=== PATIENT | male | born 1985 | race Caucasian/White ===

== ENCOUNTER 2025-05-07 00:41 | Inpatient (IN) | payer OTHER ==
[~2025-05-07] VITALS: Ht 177.8 cm; Wt 92.4 kg
[2025-05-07] VITALS (11 sets, daily range): BP systolic 112–145; BP diastolic 77–88; PULSE 62–82; RESP 16–24; TEMP 97.6–98.7; O2SAT 94–98
[2025-05-07 00:54] LABS: Hematocrit 40.1 % (41.0-53.0); Hemoglobin 13.1 g/dL (13.5-17.5); Mean Corpuscular Hemoglobin 27.2 pg (28.0-32.0); Mean Corpuscular Volume 83.1 fL (80.0-100.0); Nucleated Red Blood Cells % 0.0 %
--- NOTE | 2025-05-07 00:59 | ED.PDOC ---
HPI Comments 39-year-old male came to ER due to chest pains. Patient denies any medical problems. At around 5:00 p.m. yesterday, while walking, he started developing substernal chest pressure, persistent, progressive, worse with deep breathing and movements, with shortness a breath. Patient went to [facility], several diagnostic tests were done, EKG revealing acute pericarditis. Patient was transferred to this institution for further evaluation management REVIEW OF SYSTEMS: General: No fever, no chills, or fatigue HEENT: No sore throat, no earache, no congestion, no neck pain. Cardiac: (+) chest pain. No palpitations. Lungs: No shortness of breath, no cough. GI: No nausea, no vomiting, no diarrhea, no constipation, no abdominal pain : No dysuria, frequency, or urgency. No hematuria. Musculoskeletal: No joint pain , no joint swelling, no extremity edema. Skin: No rash, no itching. Neuro: No headache, no dizziness, no weakness EXAM: General: Awake, alert and oriented. No acute distress. Skin: Skin in warm, dry and intact. Appropriate color for ethnicity. HEENT: The head is normocephalic and atraumatic. Conjunctivae are clear without exudates or hemorrhage. Sclera is non-icteric. EOM are intact. No signs of nystagmus. Eyelids are normal in appearance without swelling or lesions. Oral mucosa is pink and moist Neck: The neck is supple with normal range of motion. No JVD. Cardiac: Heart rate and rhythm are normal. No murmurs, gallops, or rubs are auscultated. Respiratory: No signs of respiratory distress. Lung sounds are clear in all lobes bilaterally without rales, rhonchi, or wheezes. Abdominal: Abdomen is soft, non-tender without distention. Bowel sounds are present and normoactive in all four quadrants. Extremities: Upper and lower extremities are atraumatic in appearance without deformity or edema. Neurological: The patient is awake, alert and oriented to person, place, and time with normal speech. Speech is clear. There is no facial asymmetry. Psychiatric: Appropriate mood and affect. Good judgement and insight Bedside ultrasound: No large pericardial effusion Chief Complaint: Chest Pain Time Seen by MD: 00:59 Reviewed Notes: Nurses Notes Allergies: Coded Allergies: NO KNOWN ALLERGIES (Unverified , 05/07/25) Information Source: Patient Mode of Arrival: EMS Severity: Moderate Timing: Hours Duration: Since onset Past Medical History PAST MEDICAL HISTORY: Denies Surgical History: Denies all surgeries Family History Family History: Reviewed,noncontributory to illness Social History Smoker: Non-Smoker Alcohol: Denies ETOH Use Drugs: Denies Drug Use Lives In: Home EKG EKG : Pulse Rate (adult): 71 Cardiac Rhythm: NSR ST: New, Inf, Infarct Comments ST-elevation anterolateral injury Was a procedure done? Was a procedure done?: No CP Differential Dx Differential Diagnosis: Angina, Anxiety / Panic Attack Differential Diagnosis: Angina, Chest Wall Pain, Costochondritis, Esophageal reflux/spasm, Gastritis, Myocardial Infarction, Pericarditis, Pneumonia, Pulmonary Embolus, Other X-Ray, Labs, Meds, VS Vital Signs Date Time Temp Pulse Resp B/P (MAP) Pulse Ox O2 Delivery O2 Flow Rate FiO2 05/07/25 01:47 64 05/07/25 01:09 77 20 97 Room Air* 0 21 05/07/25 01:09 98.1 72 20 121/80 (94) 98 98.1 05/07/25 00:59 71 05/07/25 00:47 71 05/07/25 00:41 98.7 80 14 127/78 98 98.7 Lab Test 05/07/25 01:32 05/07/25 01:00 05/07/25 00:40 Range/Units Troponin I High Sensitivity 768 *H 799 *H </=54 ng/L Influenza Type A Antigen Negative Negative Influenza Type B Antigen Negative Negative SARS-CoV-2 Antigen (Rapid) Negative NEGATIVE White Blood Count 9.8 4.4-10.8 10^3/uL Red Blood Count 4.82 4.5-5.90 10^6/uL Hemoglobin 13.1 L 13.5-17.5 g/dL Hematocrit 40.1 L 41.0-53.0 % Mean Corpuscular Volume 83.1 80.0-100.0 fL Mean Corpuscular Hemoglobin 27.2 L 28.0-32.0 pg Mean Corpuscular Hemoglobin Concent 32.7 32.0-36.0 g/dL Red Cell Distribution Width 12.8 11.8-14.3 % Platelet Count 236 140-450 10^3/uL Mean Platelet Volume 8.0 6.9-10.8 fL Neutrophils (%) (Auto) 71.5 37.0-80.0 % Lymphocytes (%) (Auto) 15.9 10.0-50.0 % Monocytes (%) (Auto) 10.7 0.0-12.0 % Eosinophils (%) (Auto) 1.4 0.0-7.0 % Basophils (%) (Auto) 0.5 0.0-2.0 % Neutrophils # (Auto) 7.0 1.6-8.6 10 ^3/uL Lymphocytes # (Auto) 1.6 0.4-5.4 10 ^3/uL Monocytes # (Auto) 1.0 0-1.3 10 ^3/uL Eosinophils # (Auto) 0.1 0-0.8 10 ^3/uL Basophils # (Auto) 0 0-0.2 10 ^3/uL Nucleated Red Blood Cells 0.0 % D-Dimer, Quantitative 0.19 0.0-0.49 mg/L FEU Sodium Level 140 136-145 mmol/L Potassium Level 4.1 3.5-5.1 mmol/L Chloride Level 105 98-107 mmol/L Carbon Dioxide Level 28 20-31 mmol/L Anion Gap 7 5-15 Blood Urea Nitrogen 7 L 9-23 mg/dL Creatinine 1.03 0.700-1.30 mg/dL Glomerular Filtration Rate Calc 95 >90 mL/min BUN/Creatinine Ratio 6.8 L 10.0-20.0 Serum Glucose 110 H 74-106 mg/dL Calcium Level 9.4 8.7-10.4 mg/dL C-Reactive Protein High Sensitivity 0.56 <1.0 mg/dL B-Type Natriuretic Peptide 5.69 0-100 pg/mL Current Medications Medications (Trade) Dose Ordered Sig/Lalito Route Start Time Stop Time Status Last Admin Aspirin 324 mg ONCE ONCE PO 05/07/25 01:00 05/07/25 01:01 DC 05/07/25 01:21 Sodium Chloride 1,000 ml @ 100 mls/hr Q10H ONCE IV 05/07/25 01:00 05/07/25 10:59 05/07/25 01:00 Time of 1ST Reevaluation: 00:55 Reevaluation 1ST: Unchanged Time of 2ND Reevaluation: 02:08 (Discussed with the Dr. Garcia (cardiology) who reviewed EKG. Recommendation is starting patient on heparin bolus and drip, keep patient NPO for likely angiogram in the morning. Echocardiogram in the morning.) Reevaluation 2ND: Unchanged Patient Education/Counseling: Need For Follow Up Family Education/Counseling: No Family Present SEPSIS Sepsis Screen Date sepsis recognized/suspect: May 07, 2025 Time Sepsis recognized/suspect: 004 Recent Procedure: No On Antibiotic Therapy: No Respiratory Rate >20: No Heart Rate >90: No Temp<36 C (96.8 F) or >38.3 C: No SBP <90 or MAP <65 mmHG: No New Acute Mental Status Change: No Is the patient on CPAP, BIPAP,: No Physician Orders Chest Xray 1 View (05/07/25 00:48) Vital Signs Q1HR (05/07/25 00:42) Saline Lock (05/07/25 00:42) Respiratory Supervisor (05/07/25 ) Electrocardigram (05/07/25 03:42) Troponin-I Hs (05/07/25 03:42) Echo 2d Mode Cardiac Dop (05/07/25 00:42) 2 Large Bore Ivs (20mg Or Larg (05/07/25 00:42) Covid19 Antigen Xiomara (05/07/25 ) Sodium Chloride 0.9% (05/07/25 01:00) Vital Signs Date Time Temp Pulse Resp B/P (MAP) Pulse Ox O2 Delivery O2 Flow Rate FiO2 05/07/25 01:47 64 05/07/25 01:09 77 20 97 Room Air* 0 21 05/07/25 01:09 98.1 72 20 121/80 (94) 98 98.1 05/07/25 00:59 71 05/07/25 00:47 71 05/07/25 00:41 98.7 80 14 127/78 98 98.7 Laboratory Tests Test 05/07/25 00:40 White Blood Count 9.8 10^3/uL (4.4-10.8) Medications Medications Dose Ordered Sig/Lalito Route Start Time Stop Time Status Last Admin Dose Admin Aspirin 324 mg ONCE ONCE PO 05/07/25 01:00 05/07/25 01:01 DC 05/07/25 01:21 Sodium Chloride 1,000 ml @ 100 mls/hr Q10H ONCE IV 05/07/25 01:00 05/07/25 10:59 05/07/25 01:00 Departure 1 Departure Time of Disposition: 02:14 Impression: Primary Impression: Chest pain Additional Impression: NSTEMI (non-ST elevated myocardial infarction) Disposition: 09 ADMITTED INPATIENT Condition: Stable Comments 39-year-old male with NSTEMI Heparin bolus and drip initiated in the ED. Case was discussed with Dr. Garcia Patient admitted to hospitalist service for further treatment, evaluation and monitoring. Extensive evaluation was performed in attempt to identify or rule out: (See differential diagnosis section) The following tests were ordered, and results were reviewed by me and discussed with patient: (See diagnostic results section) The following test were independently interpreted by me: EKG I reviewed and agreed with the following test results read by other providers: Chest x-ray I reviewed the following notes from the pt's past medical encounters: N/A Additional information was gathered from interviewing the following independent historians: EMS personnel Discussion of management or test interpretation with external physician/other qualified health laboratory animal caretaker: Soledad Miguel Addressed [ ]an acute or chronic illness that poses a threat to life or bodily function: NSTEMI Decision regarding hospitalization or escalation of hospital level of care: Risk and benefits of admission for further treatment of patient's condition was considered. Due to patient's current clinical condition, high risk of decline and poor outcome if discharged and need for further inpatient management and monitoring, patient will be admitted to the hospital. Discussed with patient. Drug therapy requiring intensive monitoring for toxicity: IV heparin Decision regarding elective major surgery with identified patient or procedure risk factors: Urgent cardiac catheterization Critical Care Note Critical Care Time?: Yes (45 min-critical care time only) Critical care comment: NSTEMI Stability Stability form required: No Heart Score Heart Score: Heart Score Response (Comments) Value History Moderate Suspicious [address]-Deviation 2 Age <45 0 Risk Factors No known risk factors 0 Troponin >3 x's Normal limit 2 Total 5 I personally scribed for ALICIA FINLEY MD ([email or web address]) on 05/07/25 at 00:59. Beatriz ctronically submitted by Luisito Rees ([facility]). I personally scribed for ALICIA FINLEY MD ([email or web address]) on 05/07/25 at 01:33. Electronically submitted by Luisito Rees ([facility]). I personally scribed for ALICIA FINLEY MD ([email or web address]) on 05/07/25 at 02:07. Electronically submitted by Luisito Rees ([facility]). ALICIA FINLEY MD May 07, 2025 00:59
[2025-05-07] MEDS: SODIUM CHLORIDE 0.9% 1,000 ML IV ONE (01:00)
[2025-05-07 01:04] LABS: Chloride 105 mmol/L (98-107); Potassium 4.1 mmol/L (3.5-5.1); Sodium 140 mmol/L (136-145)
[2025-05-07 01:05] LABS: Anion Gap 7 (5-15); Calcium 9.4 mg/dL (8.7-10.4); Carbon Dioxide 28 mmol/L (20-31)
[2025-05-07 01:10] LABS: BUN/Creatinine Ratio 6.8 (10.0-20.0)
--- NOTE | 2025-05-07 01:13 | DVH ---
CHEST RADIOGRAPH Indication: cp Technique: Single frontal view of the chest was obtained COMPARISON: None FINDINGS: Lines and Tubes: None Lungs: Clear Pleura: No effusion. No pneumothorax. Cardiomediastinal contours: Enlarged Bones: Unremarkable IMPRESSION: 1. Cardiac silhouette appears mildly enlarged without overt pulmonary edema or other acute abnormalit y
[2025-05-07 01:16] LABS: Blood Urea Nitrogen 7 mg/dL (9-23); Glucose 110 mg/dL (74-106)
--- NOTE | 2025-05-07 01:48 | ECG ---
[facility] Test Date: 2025-05-07 Test Time: 01:47:26 Pat Name: DEVON VILLALOBOS Department: Room: 0217T Gender: M Admissions Consultant: NOLAN : 1985 Requested By: ALICIA FINLEY Order Number: [id number] Reading MD: Evan Hawkins Measurements Intervals [place] Rate: 64 P: 78 OR: 159 QRS: 68 QRSD: 95 T: 33 QT: 385 QTc: 398 Interpretive Statements Sinus arrhythmia Inferior infarct, acute (LCx) Lateral leads are also involved Electronically Signed On 05-08-2025 19:18:01 PDT by Evan Hawkins Please click the below link to view image of tracing.
--- NOTE | 2025-05-07 01:56 | ECG ---
[facility] Test Date: 2025-05-07 Test Time: 00:47:40 Pat Name: DEVON VILLALOBOS Department: Room: 0217T Gender: M Senior Energy Market Coordinator: RAVI : 1985 Requested By: ALICIA FINLEY Order Number: [id number] Reading MD: Evan Hawkins Measurements Intervals [place] Rate: 71 P: 88 [place]: 153 QRS: 82 QRSD: 94 T: 46 QT: 374 QTc: 407 Interpretive Statements Sinus rhythm Inferior infarct, acute (LCx) ST elevation, consider anterolateral injury Electronically Signed On 05-08-2025 19:17:56 PDT by Evan Hawkins Please click the below link to view image of tracing.
[2025-05-07 02:08] LABS: COVID19 ANTIGEN SOFIA FIA NEGATIVE (NEGATIVE)
[2025-05-07 02:33] LABS: INR 1.09 (0.9-1.15); Partial Thromboplastin Time 25.8 SEC (24.5-34.5); Prothrombin Time 11.5 sec (9.3-11.8)
[2025-05-07] MEDS ORDERED: HEPARIN DRIP/D5W 100UNITS/ML 250 ML IV SCH (03:00)
--- NOTE | 2025-05-07 03:32 | DVHHPRES ---
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 Patient started having chest pain at the end of the shift around 1700 yesterday, midsternal, sharp and pressure type in nature, worsening on taking deep breaths, relieved by leaning forward, radiating to the left arm, 9/10 intensity, patient never had this pain in the past. He denies any medical conditions and denies taking any medications. Denies any viral conditions cough shortness of breaths recently. Chest pain has been constant, currently 3/10 in intensity Past medical/surgical history: Denies Home medication: Denies Allergic history: None Social history: Family's in [place], denies smoking/drinking/drug use EKG shows diffuse ST elevation with WV elevation in AVR, and WV depression in other leads. Troponins not uptrending. Started ibuprofen and colchicine. Review of Systems Allergies: Coded Allergies: NO KNOWN ALLERGIES (Unverified , 05/07/25) Medications Current Medications Medications Dose Ordered Sig/Lalito Route Start Time Stop Time Status Last Admin Dose Admin Heparin Sodium/ Dextrose 250 ml @ 10 mls/hr Q24H IV 05/07/25 03:00 Exam Vital Signs Vital Signs Date Time Temp Pulse Resp B/P (MAP) Pulse Ox O2 Delivery O2 Flow Rate FiO2 05/07/25 01:47 64 05/07/25 01:09 20 97 Room Air* 0 21 05/07/25 01:09 98.1 121/80 (94) 98.1 General Appearance: Alert, Oriented X3, Cooperative, No acute distress HEENT: Atraumatic, Mucous membr. moist/pink Respiratory: Other (Decreased bilateral air entry in the lower lobes) Cardiovascular: Regular rate, Normal S1, Normal S2, No murmurs Abdominal: Normal bowel sounds, No tenderness Extremities: No edema, No tenderness/swelling Neuro: Normal speech, Strength at 5/5 X4 ext Psych/Mental Status: Mental status NL, Mood NL Labs/Xrays Labs Test 05/07/25 01:32 05/07/25 01:00 05/07/25 00:40 Range/Units Troponin I High Sensitivity 768 *H </=54 ng/L Influenza Type A Antigen Negative Negative Influenza Type B Antigen Negative Negative SARS-CoV-2 Antigen (Rapid) Negative NEGATIVE White Blood Count 9.8 4.4-10.8 10^3/uL Red Blood Count 4.82 4.5-5.90 10^6/uL Hemoglobin 13.1 L 13.5-17.5 g/dL Hematocrit 40.1 L 41.0-53.0 % Mean Corpuscular Volume 83.1 80.0-100.0 fL Mean Corpuscular Hemoglobin 27.2 L 28.0-32.0 pg Mean Corpuscular Hemoglobin Concent 32.7 32.0-36.0 g/dL Red Cell Distribution Width 12.8 11.8-14.3 % Platelet Count 236 140-450 10^3/uL Mean Platelet Volume 8.0 6.9-10.8 fL Neutrophils (%) (Auto) 71.5 37.0-80.0 % Lymphocytes (%) (Auto) 15.9 10.0-50.0 % Monocytes (%) (Auto) 10.7 0.0-12.0 % Eosinophils (%) (Auto) 1.4 0.0-7.0 % Basophils (%) (Auto) 0.5 0.0-2.0 % Neutrophils # (Auto) 7.0 1.6-8.6 10 ^3/uL Lymphocytes # (Auto) 1.6 0.4-5.4 10 ^3/uL Monocytes # (Auto) 1.0 0-1.3 10 ^3/uL Eosinophils # (Auto) 0.1 0-0.8 10 ^3/uL Basophils # (Auto) 0 0-0.2 10 ^3/uL Nucleated Red Blood Cells 0.0 % Prothrombin Time 11.5 9.3-11.8 sec Prothrombin Time INR 1.09 0.9-1.15 Activated Partial Thromboplast Time 25.8 24.5-34.5 SEC D-Dimer, Quantitative 0.19 0.0-0.49 mg/L FEU Sodium Level 140 136-145 mmol/L Potassium Level 4.1 3.5-5.1 mmol/L Chloride Level 105 98-107 mmol/L Carbon Dioxide Level 28 20-31 mmol/L Anion Gap 7 5-15 Blood Urea Nitrogen 7 L 9-23 mg/dL Creatinine 1.03 0.700-1.30 mg/dL Glomerular Filtration Rate Calc 95 >90 mL/min BUN/Creatinine Ratio 6.8 L 10.0-20.0 Serum Glucose 110 H 74-106 mg/dL Calcium Level 9.4 8.7-10.4 mg/dL C-Reactive Protein High Sensitivity 0.56 <1.0 mg/dL B-Type Natriuretic Peptide 5.69 0-100 pg/mL SEPSIS Sepsis Screen Date sepsis recognized/suspect: May 07, 2025 Time Sepsis recognized/suspect: 011 Recent Procedure: No On Antibiotic Therapy: No Respiratory Rate >20: No Heart Rate >90: No Temp<36 C (96.8 F) or >38.3 C: No SBP <90 or MAP <65 mmHG: No New Acute Mental Status Change: No Is the patient on CPAP, BIPAP,: No Physician Orders Chest Xray 1 View (05/07/25 00:48) Vital Signs Q1HR (05/07/25 00:42) Saline Lock (05/07/25 00:42) Assistant Boys Track Coach (05/07/25 ) Electrocardigram (05/07/25 03:42) Troponin-I Hs (05/07/25 03:42) Echo 2d Mode Cardiac Dop (05/07/25 00:42) 2 Large Bore Ivs (20mg Or Larg (05/07/25 00:42) Sodium Chloride 0.9% (05/07/25 01:00) Npo (Nothing By Mouth) Diet (05/07/25 Breakfast) Platelet Monitoring (05/07/25 02:06) Heparin Per Standardized Proce (05/07/25 02:06) Discontinue All Im Injections (05/07/25 02:06) Heparin Drip/D5w 100units/Ml (05/07/25 03:00) Erythrocyte Sedimentation Rate (05/07/25 02:52) Vitamin D, 25-Hydroxy (05/07/25 02:52) Vitamin B12 (05/07/25 02:52) Urinalysis (05/07/25 02:52) Thyroid Stimulating Hormone (05/07/25 02:52) Phosphorus (05/07/25 02:52) Magnesium (05/07/25 02:52) Lipid Panel (05/07/25 02:52) Lactic Acid W/ Reflex Order (05/07/25 02:52) Hemoglobin A1c (05/07/25 02:52) Drug Screen (05/07/25 02:52) Complete Blood Count (05/07/25 02:52) Comprehensive Metabolic Panel (05/07/25 02:52) PTPTT (05/07/25 09:00) Heparin Per Pharmacy Protocol (05/07/25 03:04) Admit (05/07/25 03:12) Colchicine (Colcrys) (05/07/25 10:00) Colchicine (Colcrys) (05/07/25 03:30) Ibuprofen Tablet (Motrin Tablet) (05/07/25 06:00) Enoxaparin Sodium (Lovenox) (05/07/25 10:00) Cardiac Diet-2gna,Lofat,Lochol (05/07/25 Breakfast) Hepatic Panel (05/07/25 03:18) Pantoprazole (Protonix) (05/07/25 10:00) Vital Signs Date Time Temp Pulse Resp B/P (MAP) Pulse Ox O2 Delivery O2 Flow Rate FiO2 05/07/25 01:47 64 05/07/25 01:09 77 20 97 Room Air* 0 21 05/07/25 01:09 98.1 72 20 121/80 (94) 98 98.1 05/07/25 00:59 71 05/07/25 00:47 71 05/07/25 00:41 98.7 80 14 127/78 98 98.7 Laboratory Tests Test 05/07/25 00:40 White Blood Count 9.8 10^3/uL (4.4-10.8) Medications Medications Dose Ordered Sig/Lalito Route Start Time Stop Time Status Last Admin Dose Admin Aspirin 324 mg ONCE ONCE PO 05/07/25 01:00 05/07/25 01:01 DC 05/07/25 01:21 324 MG Sodium Chloride 1,000 ml @ 100 mls/hr Q10H ONCE IV 05/07/25 01:00 05/07/25 10:59 05/07/25 01:00 100 MLS/HR Assessment/Plan Assessment/Plan Acute chest pain likely perimyocarditis/myopericarditis NSTEMI type 1 versus type [address] elevation, WV elevation in AVR, otherwise WV depression ESR CRP negative COVID flu negative Ibuprofen TID 600 mg Colchicine 0.6 mg b.i.d. Echocardiogram pending Chest x-ray shows mild cardiomegaly Cardiology consultation Per Dr. Garcia - continue heparin drip NPO Plan discussed with patient in which all questions have been answered Goals of care discussed for more than 18 minutes, full code status Case discussed with Dr. Van Plan discussed with: Patient My Orders Orders - DEAN WARD Procedure Category Date Status Time Admit ADMIT 05/07/25 Transmitted 03:12 Colchicine (Colcrys) PHA 05/07/25 Verified 10:00 Colchicine (Colcrys) PHA 05/07/25 Verified 03:30 Ibuprofen Tablet PHA 05/07/25 Verified (Motrin Tablet) 06:00 Enoxaparin Sodium PHA 05/07/25 Verified (Lovenox) 10:00 Cardiac DIET 05/07/25 Verified Diet-2gna,Lofat,Lochol Breakfast Hepatic Panel LAB 05/07/25 Verified 03:18 Pantoprazole PHA 05/07/25 Verified (Protonix) 10:00 Date of Service: May 07, 2025 Billing Provider: TOBY VAN MD Common Visit Codes: [id number] INP/OBS CARE (HIGH) DEAN WARD May 07, 2025 03:32
[2025-05-07 03:42] LABS: Hematocrit 39.3 % (41.0-53.0); Hemoglobin 12.6 g/dL (13.5-17.5); Mean Corpuscular Hemoglobin 26.8 pg (28.0-32.0); Mean Corpuscular Volume 83.6 fL (80.0-100.0); Nucleated Red Blood Cells % 0.1 %
[2025-05-07] MEDS: HEPARIN DRIP/D5W 100UNITS/ML 250 ML IV SCH ×2 (03:42→11:05)
[2025-05-07] MEDS: COLCHICINE 0.6 MG CAP PO ONE (03:47)
[2025-05-07 03:56] LABS: Albumin 4.1 g/dL (3.2-4.8); Alkaline Phosphatase 61 U/L (46-116); Anion Gap 8 (5-15); BUN/Creatinine Ratio 7.1 (10.0-20.0); Bilirubin, Total 0.7 mg/dL (0.2-1.0); Calcium 9.3 mg/dL (8.7-10.4); Carbon Dioxide 28 mmol/L (20-31); Chloride 105 mmol/L (98-107); Glucose 102 mg/dL (74-106); Magnesium 1.8 mg/dL (1.6-2.6); Potassium 3.9 mmol/L (3.5-5.1); Sodium 141 mmol/L (136-145); Total Protein 7.2 g/dL (5.7-8.2)
[2025-05-07 03:57] LABS: Alanine Aminotransferase 55 U/L (7-40); Blood Urea Nitrogen 7 mg/dL (9-23)
[2025-05-07 04:30] LABS: Triglycerides 50 mg/dL (< 150)
[2025-05-07 04:32] LABS: Cholesterol 160 mg/dL (< 200); HDL Cholesterol 46 mg/dL (40-59)
[2025-05-07] MEDS: IBUPROFEN 600 MG TAB PO SCH (06:13)
--- NOTE | 2025-05-07 06:19 | ECG ---
Test Date: 2025-05-07 Test Time: 03:42:53 Pat Name: DEVON VILLALOBOS Department: Room: 0217T Gender: M Handyperson: BROCK : 1985 Requested By: ALICIA FINLEY Order Number: [id number] Reading MD: Evan Hawkins Measurements Intervals [place] Rate: 75 P: 56 ND: 157 QRS: 65 QRSD: 95 T: 33 QT: 382 QTc: 427 Interpretive Statements Sinus rhythm Inferior infarct, acute (LCx) ST elevation, consider anterolateral injury Electronically Signed On 05-08-2025 19:18:02 PDT by Evan Hawkins Please click the below link to view image of tracing.
--- NOTE | 2025-05-07 09:36 | DVHINCON2 ---
Date Seen: May 07, [address] Hilton Reason for Consultation Elevated troponin History of Present Illness 39-year-old male with no known past medical history presents [facility] [employer] with chest pain that began yesterday while walking in the field at work. He described the pain as sharp, worse with deep inspiration and lying flat, and improved when sitting up. A 12 lead EKG in the ED reveals sinus rhythm with finding consistent with acute pericarditis. Initial troponins were elevated at 799/768/756. He was started on a heparin drip in ED. Colchicine 0.6 mg b.i.d. was initiated. ESR and CRP were obtained and returned within normal limits. The patient denies tobacco, illicit drug, or ETOH abuse. Patient reports family history paternal side father with CAD s/p SD at a later age. Past Medical History Denies Past Surgical History Denies Family History Father with CAD Social History The patient lives at home, denies smoking, alcohol or illicit drugs abuse. Allergies: Coded Allergies: NO KNOWN ALLERGIES (Unverified , 05/07/25) Current Medications Current Medications Medications (Trade) Dose Ordered Sig/Lalito Route PRN Reason Start Time Stop Time Status Last Admin Heparin Sodium/ Dextrose 250 ml @ 10 mls/hr Q24H IV 05/07/25 03:00 05/07/25 03:21 DC Colchicine (Colcrys) 0.6 mg Q12HR PO 05/07/25 10:00 Ibuprofen (Motrin Tablet) 600 mg TID PO 05/07/25 06:00 05/07/25 06:13 Enoxaparin Sodium (Lovenox) 40 mg DAILY SC 05/07/25 10:00 05/07/25 03:30 DC Pantoprazole Sodium (Protonix) 40 mg DAILY IV 05/07/25 10:00 Heparin Sodium/ Dextrose 250 ml @ 10 mls/hr Q24H IV 05/07/25 03:30 05/07/25 03:42 Review of Systems Constitutional: No symptom reported Ears, Nose, & Throat: No symptom reported Eyes: No symptom reported Neurological: No symptoms reported Pulmonary/Respiratory: No symptom reported Cardiovascular: Sharp chest pain Gastrointestinal: No symptom reported Genitourinary: No symptom reported Musculoskeletal: No symptom reported Skin: No symptom reported Psychiatric: No symptom reported Endocrine: No symptom reported Hemotologic/Lymphatic: No symptom reported Vital Signs Vital Signs Date Time Temp Pulse Resp B/P (MAP) Pulse Ox O2 Delivery O2 Flow Rate FiO2 05/07/25 07:39 72 05/07/25 07:15 98.2 20 113/45 (67) 98 98.2 05/07/25 07:15 Room Air* 0 21 Physical Exam INITIAL VITAL SIGNS: Reviewed by me GENERAL: Alert and interactive. No acute distress. HEAD: Head is normocephalic and atraumatic. EYES: EOMI, PERRL. No scleral icterus. No conjunctival injection. ENT: Moist mucous membranes. NECK: Supple, No masses, Full range of motion. RESPIRATORY: No tachypnea. Clear breath sounds bilaterally. No wheezing, rales, rhonchi. CV: Regular rate and rhythm. No murmurs, rubs, or gallops. GI/: Active bowel sounds, soft, nondistended, nontender. No guarding. No rebound. No masses. No CVA tenderness. INTEGUMENTARY: Warm and dry. No obvious rashes. NEUROLOGIC: Alert and oriented. Face is symmetric. Speech is normal. Moves all extremities equally. Labs/Diagnostic Data Labs Test 05/07/25 09:26 05/07/25 08:56 05/07/25 03:35 05/07/25 01:00 Range/Units White Blood Count 9.4 4.4-10.8 10^3/uL Red Blood Count 4.70 4.5-5.90 10^6/uL Hemoglobin 12.6 L 13.5-17.5 g/dL Hematocrit 39.3 L 41.0-53.0 % Mean Corpuscular Volume 83.6 80.0-100.0 fL Mean Corpuscular Hemoglobin 26.8 L 28.0-32.0 pg Mean Corpuscular Hemoglobin Concent 32.0 32.0-36.0 g/dL Red Cell Distribution Width 12.5 11.8-14.3 % Platelet Count 230 140-450 10^3/uL Mean Platelet Volume 8.1 6.9-10.8 fL Neutrophils (%) (Auto) 62.8 37.0-80.0 % Lymphocytes (%) (Auto) 24.1 10.0-50.0 % Monocytes (%) (Auto) 10.7 0.0-12.0 % Eosinophils (%) (Auto) 1.6 0.0-7.0 % Basophils (%) (Auto) 0.8 0.0-2.0 % Neutrophils # (Auto) 5.9 1.6-8.6 10 ^3/uL Lymphocytes # (Auto) 2.3 0.4-5.4 10 ^3/uL Monocytes # (Auto) 1.0 0-1.3 10 ^3/uL Eosinophils # (Auto) 0.2 0-0.8 10 ^3/uL Basophils # (Auto) 0.1 0-0.2 10 ^3/uL Nucleated Red Blood Cells 0.1 % Erythrocyte Sedimentation Rate 1 0-20 mm/hr Sodium Level 141 136-145 mmol/L Potassium Level 3.9 3.5-5.1 mmol/L Chloride Level 105 98-107 mmol/L Carbon Dioxide Level 28 20-31 mmol/L Anion Gap 8 5-15 Blood Urea Nitrogen 7 L 9-23 mg/dL Creatinine 0.99 0.700-1.30 mg/dL Glomerular Filtration Rate Calc 100 >90 mL/min BUN/Creatinine Ratio 7.1 L 10.0-20.0 Serum Glucose 102 74-106 mg/dL Lactic Acid Level 0.8 0.4-2.0 mmol/L Calcium Level 9.3 8.7-10.4 mg/dL Phosphorus Level 4.0 2.4-5.1 mg/dL Magnesium Level 1.8 1.6-2.6 mg/dL Total Bilirubin 0.7 0.2-1.0 mg/dL Aspartate Amino Transferase (AST) 34 13-40 U/L Alanine Aminotransferase (ALT) 55 H 7-40 U/L Alkaline Phosphatase 61 46-116 U/L Troponin I High Sensitivity 756 *H </=54 ng/L Total Protein 7.2 5.7-8.2 g/dL Albumin 4.1 3.2-4.8 g/dL Triglycerides Level 50 < 150 mg/dL Cholesterol Level 160 < 200 mg/dL LDL Cholesterol 114 H < 100 mg/dL HDL Cholesterol 46 40-59 mg/dL Influenza Type A Antigen Negative Negative Influenza Type B Antigen Negative Negative SARS-CoV-2 Antigen (Rapid) Negative NEGATIVE Test 05/07/25 00:40 Range/Units D-Dimer, Quantitative 0.19 0.0-0.49 mg/L FEU Hemoglobin A1c 5.0 <5.7 % A1C C-Reactive Protein High Sensitivity 0.56 <1.0 mg/dL B-Type Natriuretic Peptide 5.69 0-100 pg/mL Thyroid Stimulating Hormone (TSH) 1.45 0.55-4.78 uIU/mL PROCEDURE(s): CXR1 - CHEST XRAY 1 VIEW REASON: cp ORDER NUMBER(s): [id number], ACCESSION NUMBER(s): [id number] CHEST RADIOGRAPH Indication: cp Technique: Single frontal view of the chest was obtained COMPARISON: None FINDINGS: Lines and Tubes: None Lungs: Clear Pleura: No effusion. No pneumothorax. Cardiomediastinal contours: Enlarged Bones: Unremarkable IMPRESSION: 1. Cardiac silhouette appears mildly enlarged without overt pulmonary edema or other acute abnormality Assessment Acute chest pain to rule out ACS Acute pericarditis NSTEMI Plan/Recommendation ( ): * Proceed with left heart catheterization to rule out obstructive coronary artery disease given elevated troponins and chest pain * Discussed risks, benefits, and alternatives of left heart catheterization with patient, patient verbalized understanding and agreed to proceed * Continue colchicine for suspected pericarditis * Echocardiogram to assess for pericardial effusion and LV function * Cardiology to follow for ongoing management * Maintain telemetry monitoring This medical document was created using an electronic medical record system with voice recognition software and computerized dictation system. Although this document has been carefully reviewed, there might still be some phonetic and typographical errors. Occasional wrong-word or ``sound-alike substitutions may have occurred due to the inherent limitations of voice recognition software. These areas are purely typographical due to imperfections of the software programs and do not reflect any compromise in the patient's medical care. Please read the chart carefully and recognize, using context, where these substitutions have occurred. Plan discussed with: Patient Plan discussed with: Patient NYHA Physical activity limitations: NA Date of Service: May 07, 2025 Billing Provider: LEXA CAMACHO MD Cardiology Common Codes: CONSULT ONLY Cardiology Consultation Codes: [id number] CONSULT <45MIN TOMMY PAGE [employer] May 07, 2025 09:36
[2025-05-07 09:37] LABS: Urine Protein, UAD Negative (Negative)
[2025-05-07 09:53] LABS: Amphetamine Screen, Urine Neg (NEGATIVE); Barbiturate Scree,Urine Neg (NEGATIVE); Benzodiazephine Screen, Urine Neg (NEGATIVE); Cannabinoid Screen, Urine Neg (NEGATIVE); Cocaine Screen, Urine Neg (NEGATIVE); Opiate Scree,Urine Neg (NEGATIVE); Phencyclidine Screen, Urine Neg (NEGATIVE)
[2025-05-07] MEDS ORDERED: ENOXAPARIN SOD 40 MG/0.4 ML SYRINGE SC SCH (10:00)
[2025-05-07 10:04] LABS: INR 1.09 (0.9-1.15); Partial Thromboplastin Time 41.5 SEC (24.5-34.5); Prothrombin Time 11.5 sec (9.3-11.8)
[2025-05-07] MEDS: COLCHICINE 0.6 MG CAP PO SCH (10:05)
[2025-05-07] MEDS: PANTOPRAZOLE 40 MG/10 ML VIAL INJ IV SCH (10:05)
[2025-05-07] MEDS: MAGNESIUM SULFATE 1GM/100ML 100 ML IV SCH (10:05)
--- NOTE | 2025-05-07 13:00 | DVHPN2 ---
Subjective Patient continues to have intermittent substernal chest pain radiating down his left arm Reviewed: Care Plan, H&P, Labs, Medications Changes from previous H/P or p: No Changes General: Per HPI Objective Vitals Vital Signs Date Time Temp Pulse Resp B/P (MAP) Pulse Ox O2 Delivery O2 Flow Rate FiO2 05/07/25 11:43 80 05/07/25 11:00 19 115/74 (88) 98 05/07/25 07:15 98.2 98.2 05/07/25 07:15 Room Air* 0 21 General Appearance: Alert, Oriented X3, Cooperative, mild distress HEENT: Atraumatic, PERRLA Lungs: Clear to auscultation, Normal air movement Cardiovascular: Normal S1, Normal S2 Abdomen: Normal bowel sounds, Soft, No tenderness, No hepatospenomegaly Musculoskeletal: Normal sensory function, Normal motor function Extremities: No clubbing, No cyanosis Neuro: Normal gait, Normal speech Skin: Dry, Intact Psych/Mental Status: Mental status NL, Mood NL Medications Current Medications Medications Dose Ordered Sig/Lalito Route Start Time Stop Time Status Last Admin Dose Admin Colchicine 0.6 mg Q12HR PO 05/07/25 10:00 05/07/25 10:05 0.6 MG Ibuprofen 600 mg TID PO 05/07/25 06:00 05/07/25 06:13 600 MG Pantoprazole Sodium 40 mg DAILY IV 05/07/25 10:00 05/07/25 10:05 40 MG Aspirin 81 mg DAILY PO 05/08/25 10:00 UNV Atorvastatin Calcium 40 mg HS PO 05/07/25 22:00 UNV Sodium Chloride 1,000 ml @ 0 mls/hr Q0M IV 05/08/25 00:15 UNV Laboratory Results Laboratory Tests 05/07/25 03:35 Chemistry Test 05/07/25 00:40 05/07/25 03:35 Calcium Level 9.4 mg/dL (8.7-10.4) 9.3 mg/dL (8.7-10.4) Albumin 4.1 g/dL (3.2-4.8) Magnesium Level 1.8 mg/dL (1.6-2.6) Phosphorus Level 4.0 mg/dL (2.4-5.1) Total Protein 7.2 g/dL (5.7-8.2) Coagulation Test 05/07/25 00:40 05/07/25 09:26 Prothrombin Time 11.5 sec (9.3-11.8) 11.5 sec (9.3-11.8) Prothrombin Time INR 1.09 (0.9-1.15) 1.09 (0.9-1.15) Activated Partial Thromboplast Time 25.8 SEC (24.5-34.5) 41.5 SEC (24.5-34.5) H D-Dimer, Quantitative 0.19 mg/L FEU (0.0-0.49) Lipid panel Test 05/07/25 03:35 Cholesterol Level 160 mg/dL (< 200) HDL Cholesterol 46 mg/dL (40-59) Triglycerides Level 50 mg/dL (< 150) Cardiac Markers Test 05/07/25 00:40 B-Type Natriuretic Peptide 5.69 pg/mL (0-100) LFT Test 05/07/25 03:35 Alanine Aminotransferase (ALT) 55 U/L (7-40) H Alkaline Phosphatase 61 U/L (46-116) Aspartate Amino Transferase (AST) 34 U/L (13-40) Total Bilirubin 0.7 mg/dL (0.2-1.0) HgA1c, TSH Test 05/07/25 00:40 Hemoglobin A1c 5.0 % A1C (<5.7) Thyroid Stimulating Hormone (TSH) 1.45 uIU/mL (0.55-4.78) Urinalysis Test 05/07/25 08:56 Urine Color Yellow (Yellow) Urine Clarity Clear (Clear) Urine pH 6.0 (5.0-9.0) Urine Specific Vici 1.027 (1.001-1.035) Urine Protein Negative (Negative) Urine Ketones Negative (Negative) Urine Blood Negative /uL (Negative) Urine Nitrite Negative (Negative) Urine Bilirubin Negative (Negative) Urine Urobilinogen Normal mg/dL (Negative) Urine Leukocyte Esterase Negative /uL (Negative) Urine RBC 2 /hpf (0 - 3) Urine Microscopic WBC 1 /HPF (0-3) Urine Squamous Epithelial Cells Few /hpf (<5) Urine Bacteria None seen /hpf (None Seen) Urine Mucus Few (None Seen) Urine Glucose Normal mg/dL (Normal) Labs and/or images reviewed: Labs reviewed by me, Image(s) reviewed by me Assessment/Plan Assessment/Plan Impression: -NSTEMI,? Type 1 -? 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 Patient had diffuse ST-elevation, representing pericarditis. Pain is worse with deep inspiration and continues to radiate down his left arm. Patient has plans to go to cardiac catheterization lab this afternoon. -anticoagulation per Cardiology -continue aspirin -repeat labs including troponin in a.m.. ESR, CRP currently within normal limits -echocardiogram, pending Total time spent with patient discussing and formulating plan of care: 35 minutes. This medical document was created using an electronic medical record system with Kleo dictation system. Although this document has been carefully reviewed, there may still be some phonetic and typographical errors. These areas are purely typographical due to imperfections of the software programs, and do not reflect any compromise in the patient's medical care. Plan discussed with: Patient, Other (RN) Date of Service: May 07, 2025 Billing Provider: KAELA WHARTON NP Common Visit Codes: [id number] INP/OBS CARE(HIGH) KAELA WHARTON NP May 07, 2025 13:00
[2025-05-07] MEDS: IODIXANOL 320MG/ML 100ML BTL IV ONE ×2 (16:03→16:42)
--- NOTE | 2025-05-07 16:13 | DVHSR ---
APPROVED REPORT EXAM: Two-dimensional and M-mode echocardiogram with Doppler and color Doppler. Blood Pressure: 113/45 mmHg INDICATION Pericarditus RISK FACTORS Height: 5' 9", Weight: 230 DIMENSIONS LVDd4.8 (3.8-5.7cm)LA (2D)3.9 (1.9-4.0cm)Aortic Root2.9 (2.0-3.7cm) LVDs3.4 (2.5-4.0cm)LA (MM) (1.9-4.0cm)Aortic Cusp Exc1.6 (1.5-2.0cm) EF (%) 55.0 (55-70%)Rt. Atrium3.2 (1.9-4.0cm)Asc. Aorta cm IVSd1.1 (0.7-1.1cm)RV (D) (1.8-2.4cm) PWd1.0 (0.7-1.1cm) Mitral Valve MitralMitral Stenosis E wave0.80m/sMV Mean GR.mmHg A wave0.50m/sMV Peak GR.mmHg E/A ratio1.62D MVAcm2 Aortic Valve Aortic ValveAortic Stenosis V10.70m/Trace Mean GR.5mmHg V21.60m/Trace Peak GR.10mmHg LVOT Diameter2.1 (1.8-2.4cm)Doppler AVA1.51cm2 Pulmonic Valve V20.60m/s Tricuspid Valve TR Velocity2.30m/s [id number] Conclusion NORMAL LV EF AND IS 65% MILD MVP NORMAL TV,PV AND AORTIC VALVE NO EFFUSION NORMAL RV FUNCTION
[2025-05-07] MEDS: ANGIOMAX 250 MG VIAL IV ONE (16:41)
[2025-05-07] MEDS: fentaNYL CITRATE 100 MCG/2 ML VL ONE (16:41)
[2025-05-07] MEDS: LIDOCAINE 2%HCL (LOCAL ANESTH.) INJ 20ML MDV ONE (16:42)
[2025-05-07] MEDS: MIDAZOLAM HCL 2MG/2ML 2ml VIAL (1mg/ml) ONE (16:42)
[2025-05-07] MEDS: SODIUM CHL 0.9% 0 ML ONE (16:42)
[2025-05-07] MEDS: HEPARIN SODIUM (PORCINE) 5000 UNITS/ML 1ML VIAL ONE (16:44)
[2025-05-07] MEDS: VERAPAMIL 2.5MG/ML INJ 2ML VIAL IV ONE (16:45)
[2025-05-07] MEDS ORDERED: SODIUM CHL 0.9% 1,000 ML IV ONE (17:45)
[2025-05-07] MEDS: HYDROcodone-ACET 5/325MG TAB PO PRN (20:59)
[2025-05-07] MEDS: ATORVASTATIN 20 MG TAB PO SCH (21:00)
--- NOTE | 2025-05-07 22:39 | DVHINCON2 ---
Date Seen: May 07, [address] Hilton Reason for Consultation Elevated troponin History of Present Illness This is a 39-year-old male with no known past medical history who was transferred to [facility] from [facility] with a complaint of chest pain that began yesterday while walking in the field at work. He described the pain as sharp, worse with deep inspiration and lying flat, and improved when sitting up. A 12 lead EKG in the ED reveals sinus rhythm with finding consistent with acute pericarditis. Initial troponins were elevated at 799/768/756. He was started on a heparin drip in the ED. Colchicine 0.6 mg b.i.d. was initiated. ESR and CRP were obtained and returned within normal limits. The patient denies tobacco, illicit drug, or ETOH abuse. Patient reports family history paternal side father with CAD s/p PR at a later age. Patient was admitted to the hospital. I am asked to consult on this patient. Past Medical History Denies Past Surgical History Denies Allergies: Coded Allergies: NO KNOWN ALLERGIES (Unverified , 05/07/25) Home Meds No Active Prescriptions or Reported Meds Current Medications Current Medications Medications (Trade) Dose Ordered Sig/Lalito Route PRN Reason Start Time Stop Time Status Last Admin Heparin Sodium/ Dextrose 250 ml @ 10 mls/hr Q24H IV 05/07/25 03:00 05/07/25 03:21 DC Colchicine (Colcrys) 0.6 mg Q12HR PO 05/07/25 10:00 05/07/25 10:05 Ibuprofen (Motrin Tablet) 600 mg TID PO 05/07/25 06:00 05/07/25 06:13 Enoxaparin Sodium (Lovenox) 40 mg DAILY SC 05/07/25 10:00 05/07/25 03:30 DC Pantoprazole Sodium (Protonix) 40 mg DAILY IV 05/07/25 10:00 05/07/25 10:05 Heparin Sodium/ Dextrose 250 ml @ 10 mls/hr Q24H IV 05/07/25 03:30 05/07/25 11:02 DC 05/07/25 03:42 Magnesium Sulfate/ Dextrose 100 ml @ 100 mls/hr Q1H IV 05/07/25 09:45 05/07/25 11:44 DC 05/07/25 11:47 Heparin Sodium/ Dextrose 250 ml @ 12 mls/hr [id number] IV 05/07/25 11:15 05/07/25 12:29 DC 05/07/25 11:05 Aspirin 81 mg DAILY PO 05/08/25 10:00 Atorvastatin Calcium (Lipitor) 40 mg HS PO 05/07/25 22:00 Sodium Chloride 1,000 ml @ 0 mls/hr Q0M IV 05/08/25 00:15 Review of Systems Constitutional: No symptom reported Ears, Nose, & Throat: No symptom reported Eyes: No symptom reported Neurological: No symptoms reported Pulmonary/Respiratory: No symptom reported Cardiovascular: Sharp chest pain Gastrointestinal: No symptom reported Genitourinary: No symptom reported Musculoskeletal: No symptom reported Skin: No symptom reported Psychiatric: No symptom reported Endocrine: No symptom reported Hemotologic/Lymphatic: No symptom reported Vital Signs Vital Signs Date Time Temp Pulse Resp B/P (MAP) Pulse Ox O2 Delivery O2 Flow Rate FiO2 05/07/25 11:43 80 05/07/25 11:00 19 115/74 (88) 98 05/07/25 07:15 98.2 98.2 05/07/25 07:15 Room Air* 0 21 Physical Exam GENERAL: Alert and oriented x 3. No acute distress. EYES: PERRL, EOMI. Anicteric. HENT: Moist mucous membranes. LUNGS: Clear to auscultation bilaterally. CARDIOVASCULAR: Regular rate and rhythm. ABDOMEN: Soft, nontender and nondistended. EXTREMITIES: No edema. NEUROLOGIC: No focal neurological deficits. SKIN: Warm, dry. Labs/Diagnostic Data Labs Test 05/07/25 11:42 05/07/25 09:26 05/07/25 08:56 05/07/25 03:35 Range/Units Troponin I High Sensitivity 431 *H </=54 ng/L Prothrombin Time 11.5 9.3-11.8 sec Prothrombin Time INR 1.09 0.9-1.15 Activated Partial Thromboplast Time 41.5 H 24.5-34.5 SEC Urine Color Yellow Yellow Urine Clarity Clear Clear Urine pH 6.0 5.0-9.0 Urine Specific Novi 1.027 1.001-1.035 Urine Protein Negative Negative Urine Ketones Negative Negative Urine Blood Negative Negative /uL Urine Nitrite Negative Negative Urine Bilirubin Negative Negative Urine Urobilinogen Normal Negative mg/dL Urine Leukocyte Esterase Negative Negative /uL Urine RBC 2 0 - 3 /hpf Urine Microscopic WBC 1 0-3 /HPF Urine Squamous Epithelial Cells Few <5 /hpf Urine Bacteria None seen None Seen /hpf Urine Mucus Few None Seen Urine Glucose Normal Normal mg/dL Urine Opiates Screen Neg NEGATIVE Urine Fentanyl Screen Neg NEGATIVE Urine Barbiturates Screen Neg NEGATIVE Urine Phencyclidine Screen Neg NEGATIVE Urine Amphetamines Screen Neg NEGATIVE Urine Benzodiazepines Screen Neg NEGATIVE Urine Cocaine Screen Neg NEGATIVE Urine Cannabinoids Screen Neg NEGATIVE White Blood Count 9.4 4.4-10.8 10^3/uL Red Blood Count 4.70 4.5-5.90 10^6/uL Hemoglobin 12.6 L 13.5-17.5 g/dL Hematocrit 39.3 L 41.0-53.0 % Mean Corpuscular Volume 83.6 80.0-100.0 fL Mean Corpuscular Hemoglobin 26.8 L 28.0-32.0 pg Mean Corpuscular Hemoglobin Concent 32.0 32.0-36.0 g/dL Red Cell Distribution Width 12.5 11.8-14.3 % Platelet Count 230 140-450 10^3/uL Mean Platelet Volume 8.1 6.9-10.8 fL Neutrophils (%) (Auto) 62.8 37.0-80.0 % Lymphocytes (%) (Auto) 24.1 10.0-50.0 % Monocytes (%) (Auto) 10.7 0.0-12.0 % Eosinophils (%) (Auto) 1.6 0.0-7.0 % Basophils (%) (Auto) 0.8 0.0-2.0 % Neutrophils # (Auto) 5.9 1.6-8.6 10 ^3/uL Lymphocytes # (Auto) 2.3 0.4-5.4 10 ^3/uL Monocytes # (Auto) 1.0 0-1.3 10 ^3/uL Eosinophils # (Auto) 0.2 0-0.8 10 ^3/uL Basophils # (Auto) 0.1 0-0.2 10 ^3/uL Nucleated Red Blood Cells 0.1 % Erythrocyte Sedimentation Rate 1 0-20 mm/hr Sodium Level 141 136-145 mmol/L Potassium Level 3.9 3.5-5.1 mmol/L Chloride Level 105 98-107 mmol/L Carbon Dioxide Level 28 20-31 mmol/L Anion Gap 8 5-15 Blood Urea Nitrogen 7 L 9-23 mg/dL Creatinine 0.99 0.700-1.30 mg/dL Glomerular Filtration Rate Calc 100 >90 mL/min BUN/Creatinine Ratio 7.1 L 10.0-20.0 Serum Glucose 102 74-106 mg/dL Lactic Acid Level 0.8 0.4-2.0 mmol/L Calcium Level 9.3 8.7-10.4 mg/dL Phosphorus Level 4.0 2.4-5.1 mg/dL Magnesium Level 1.8 1.6-2.6 mg/dL Total Bilirubin 0.7 0.2-1.0 mg/dL Aspartate Amino Transferase (AST) 34 13-40 U/L Alanine Aminotransferase (ALT) 55 H 7-40 U/L Alkaline Phosphatase 61 46-116 U/L Total Protein 7.2 5.7-8.2 g/dL Albumin 4.1 3.2-4.8 g/dL Triglycerides Level 50 < 150 mg/dL Cholesterol Level 160 < 200 mg/dL LDL Cholesterol 114 H < 100 mg/dL HDL Cholesterol 46 40-59 mg/dL Test 05/07/25 01:00 05/07/25 00:40 Range/Units Influenza Type A Antigen Negative Negative Influenza Type B Antigen Negative Negative SARS-CoV-2 Antigen (Rapid) Negative NEGATIVE D-Dimer, Quantitative 0.19 0.0-0.49 mg/L FEU Hemoglobin A1c 5.0 <5.7 % A1C C-Reactive Protein High Sensitivity 0.56 <1.0 mg/dL B-Type Natriuretic Peptide 5.69 0-100 pg/mL Thyroid Stimulating Hormone (TSH) 1.45 0.55-4.78 uIU/mL Assessment Acute chest pain to rule out ACS. Acute pericarditis. NSTEMI. Plan/Recommendation I agree with your ongoing assessment and care of plan. Patient has been seen by Juanis Magallanes NP on my behalf, her and I discussed the plan with the patient. Proceed with left heart catheterization to rule out obstructive coronary artery disease given elevated troponins and chest pain. Discussed risks, benefits, and alternatives of left heart catheterization with patient, patient verbalized understanding and agreed to proceed. Continue colchicine for suspected pericarditis. Echocardiogram to assess for pericardial effusion and LV function. Cardiology to follow for ongoing management. Maintain telemetry monitoring. Additional plan as per the hospital course. Plan discussed with: Patient NYHA Physical activity limitations: NA Date of Service: May 07, 2025 Billing Provider: LEXA CAMAHCO MD Cardiology Common Codes: [id number] INP/OBS CARE (High) Cardiology Consultation Codes: [id number] CONSULT <45MIN LEXA CAMACHO MD May 07, 2025 14:45
[2025-05-08] MEDS ORDERED: SODIUM CHLORIDE 0.9% 1,000 ML IV SCH (00:15)
[2025-05-08 01:00] VITALS: BP 108/64; PULSE 73; RESP 17; TEMP 98.2; O2SAT 96
[2025-05-08 05:00] VITALS: BP 110/74; PULSE 69; RESP 17; TEMP 98; O2SAT 98
[2025-05-08 06:54] LABS: Anion Gap 9 (5-15); Carbon Dioxide 27 mmol/L (20-31); Chloride 104 mmol/L (98-107); Potassium 3.9 mmol/L (3.5-5.1); Sodium 140 mmol/L (136-145)
[2025-05-08 06:56] LABS: Calcium 9.3 mg/dL (8.7-10.4)
[2025-05-08 07:00] LABS: Glucose 97 mg/dL (74-106)
[2025-05-08 07:01] LABS: BUN/Creatinine Ratio 7.6 (10.0-20.0); Blood Urea Nitrogen 7 mg/dL (9-23)
--- NOTE | 2025-05-08 07:19 | ECG ---
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
[2025-05-08 08:00] VITALS: PULSE 69; PULSE 81; RESP 16; O2SAT 99
[2025-05-08 09:12] VITALS: BP_SYST 110; BP_SYST 117; BP_DIAS 70; BP_DIAS 71; PULSE 81; PULSE 90; RESP 16; RESP 18; TEMP 100.4; TEMP 97.8; O2SAT 93; O2SAT 99
[2025-05-08] MEDS ORDERED: COLC1CAP PO (10:07)
--- NOTE | 2025-05-08 10:17 | DVHDS2 ---
Discharge Summary Date of Admission May 07, 2025 at 03:12 Date of Discharge: May 08, 2025 Admitting Diagnosis Pericarditis/myocarditis Labs/Diagnostic Data: Laboratory Results Test 05/08/25 06:12 05/07/25 09:26 05/07/25 08:56 05/07/25 03:35 Sodium Level 140 mmol/L (136-145) Potassium Level 3.9 mmol/L (3.5-5.1) Chloride Level 104 mmol/L (98-107) Carbon Dioxide Level 27 mmol/L (20-31) Anion Gap 9 (5-15) Blood Urea Nitrogen 7 mg/dL (9-23) Creatinine 0.92 mg/dL (0.700-1.30) Glomerular Filtration Rate Calc 109 mL/min (>90) BUN/Creatinine Ratio 7.6 (10.0-20.0) Serum Glucose 97 mg/dL (74-106) Calcium Level 9.3 mg/dL (8.7-10.4) Troponin I High Sensitivity 741 ng/L (</=54) Prothrombin Time 11.5 sec (9.3-11.8) Prothrombin Time INR 1.09 (0.9-1.15) Activated Partial Thromboplast Time 41.5 SEC (24.5-34.5) Urine Color Yellow (Yellow) Urine Clarity Clear (Clear) Urine pH 6.0 (5.0-9.0) Urine Specific [place] 1.027 (1.001-1.035) Urine Protein Negative (Negative) Urine Ketones Negative (Negative) Urine Blood Negative /uL (Negative) Urine Nitrite Negative (Negative) Urine Bilirubin Negative (Negative) Urine Urobilinogen Normal mg/dL (Negative) Urine Leukocyte Esterase Negative /uL (Negative) Urine RBC 2 /hpf (0 - 3) Urine Microscopic WBC 1 /HPF (0-3) Urine Squamous Epithelial Cells Few /hpf (<5) Urine Bacteria None seen /hpf (None Seen) Urine Mucus Few (None Seen) Urine Glucose Normal mg/dL (Normal) Urine Opiates Screen Neg (NEGATIVE) Urine Fentanyl Screen Neg (NEGATIVE) Urine Barbiturates Screen Neg (NEGATIVE) Urine Phencyclidine Screen Neg (NEGATIVE) Urine Amphetamines Screen Neg (NEGATIVE) Urine Benzodiazepines Screen Neg (NEGATIVE) Urine Cocaine Screen Neg (NEGATIVE) Urine Cannabinoids Screen Neg (NEGATIVE) White Blood Count 9.4 10^3/uL (4.4-10.8) Red Blood Count 4.70 10^6/uL (4.5-5.90) Hemoglobin 12.6 g/dL (13.5-17.5) Hematocrit 39.3 % (41.0-53.0) Mean Corpuscular Volume 83.6 fL (80.0-100.0) Mean Corpuscular Hemoglobin 26.8 pg (28.0-32.0) Mean Corpuscular Hemoglobin Concent 32.0 g/dL (32.0-36.0) Red Cell Distribution Width 12.5 % (11.8-14.3) Platelet Count 230 10^3/uL (140-450) Mean Platelet Volume 8.1 fL (6.9-10.8) Neutrophils (%) (Auto) 62.8 % (37.0-80.0) Lymphocytes (%) (Auto) 24.1 % (10.0-50.0) Monocytes (%) (Auto) 10.7 % (0.0-12.0) Eosinophils (%) (Auto) 1.6 % (0.0-7.0) Basophils (%) (Auto) 0.8 % (0.0-2.0) Neutrophils # (Auto) 5.9 10 ^3/uL (1.6-8.6) Lymphocytes # (Auto) 2.3 10 ^3/uL (0.4-5.4) Monocytes # (Auto) 1.0 10 ^3/uL (0-1.3) Eosinophils # (Auto) 0.2 10 ^3/uL (0-0.8) Basophils # (Auto) 0.1 10 ^3/uL (0-0.2) Nucleated Red Blood Cells 0.1 % Erythrocyte Sedimentation Rate 1 mm/hr (0-20) Lactic Acid Level 0.8 mmol/L (0.4-2.0) Phosphorus Level 4.0 mg/dL (2.4-5.1) Magnesium Level 1.8 mg/dL (1.6-2.6) Total Bilirubin 0.7 mg/dL (0.2-1.0) Aspartate Amino Transferase (AST) 34 U/L (13-40) Alanine Aminotransferase (ALT) 55 U/L (7-40) Alkaline Phosphatase 61 U/L (46-116) Total Protein 7.2 g/dL (5.7-8.2) Albumin 4.1 g/dL (3.2-4.8) Triglycerides Level 50 mg/dL (< 150) Cholesterol Level 160 mg/dL (< 200) LDL Cholesterol 114 mg/dL (< 100) HDL Cholesterol 46 mg/dL (40-59) Test 05/07/25 01:00 05/07/25 00:40 Influenza Type A Antigen Negative (Negative) Influenza Type B Antigen Negative (Negative) SARS-CoV-2 Antigen (Rapid) Negative (NEGATIVE) D-Dimer, Quantitative 0.19 mg/L FEU (0.0-0.49) Hemoglobin A1c 5.0 % A1C (<5.7) C-Reactive Protein High Sensitivity 0.56 mg/dL (<1.0) B-Type Natriuretic Peptide 5.69 pg/mL (0-100) Thyroid Stimulating Hormone (TSH) 1.45 uIU/mL (0.55-4.78) Other Laboratory Tests 05/08/25 06:12 05/07/25 03:35 Brief Hx & Hospital Course: History of Present Illness This is a 39-year-old male with no past medical history 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 Patient started having chest pain at the end of the shift around 1700 yesterday, midsternal, sharp and pressure type in nature, worsening on taking deep breaths, relieved by leaning forward, radiating to the left arm, 9/10 intensity, patient never had this pain in the past. He denies any medical conditions and denies taking any medications. Denies any viral conditions cough shortness of breaths recently. Chest pain has been constant, currently 3/10 in intensity Course of hospitalization: Cardiology consultation was obtained. Patient underwent left heart catheterization yesterday with investigation of the patient's aorta as well. Patient had no signs of CAD or dissection. Patient's chest pain has improved with colchicine treatment. Patient will be discharged home today with restrictions using his right hand for one week, not to lift anything greater than 5 lb. Patient will follow up with the physician assigned to the patient in 1-2 weeks. He will be continued on colchicine 0.6 mg p.o. b.i.d. for additional two months. Patient was agreeable with discharge plan. All questions answered. Physical examination General: Alert and Oriented x3. No acute distress. Well-nourished. Eyes: EOMI. Anicteric. HENT: Moist mucous membranes. Lungs: Clear to auscultation bilaterally. No accessory muscle use. Cardiovascular: Regular rate and rhythm. No murmur. No JVD. Abdomen: Soft, non-tender and non-distended. No palpable masses. Extremities: No edema. Non-tender. Skin: No rashes or lesions. Warm. Neurologic: No focal neurological deficits. CN II-XII grossly intact, but not individually tested. Psychiatric: Cooperative. Appropriate mood and affect. Total time spent with patient discussing and formulating plan of care: 35 minutes. This medical document was created using an electronic medical record system with [employer] system. Although this document has been carefully reviewed, there may still be some phonetic and typographical errors. These areas are purely typographical due to imperfections of the software programs, and do not reflect any compromise in the patient's medical care. Consults/Reason for consult Cardiology: Elevated troponin Operations or Procedures 05/07/25: Left heart catheterization Condition at Discharge: Fair Final Diagnosis/Problems List -NSTEMI, Type 2 -Pericarditis -ruled out SCAD Discharge Disposition: Home Discharge Instruct/Medications Diet: Regular Activity: See Comment Activity comment: Do not lift anything greater than 5lbs in 1 to 2 weeks Follow Up/Referral: physician in 1 week. Medications: Colchicine 0.6 mg p.o. b.i.d. for two months Scheduled Colchicine (Colchicine), 0.6 MG PO BID 36 Discharge Statement: "Patient was advised to return to the ER or call 911 if any headaches, dizziness, shortness of breath, chest pain, abdominal pain, bleeding, fevers, or worsening of medical condition. Patient was counseled about treatment plan, medications, possible side effects, patientverbalized understanding. All questions were answered to the best of my ability. This discharge took greater then 30 minutes in planning, reviewing documentation, counseling the patient, and discussing with other team members." ASSESSMENT ASSESSMENT Assessment Date of Service: May 08, 2025 Billing Provider: KAELA WHARTON NP Common Visit Codes: 12020-[facility]/OBS DISCH DAY >30min KAELA WHARTON NP May 08, 2025 10:17
[2025-05-08 13:06] VITALS: BP 129/75; PULSE 72; RESP 18; TEMP 98; O2SAT 98
--- NOTE | 2025-05-08 22:43 | DVHPN2 ---
Progress Note - Dictate Date Seen: May 08, 2025 Medical Necessity Reason Pt with a Central, PICC or Fol: No Subjective Patient was seen and evaluated in follow up. Echo shows LV EF of 65%. Patient underwent cardiac cath, tolerated procedure well. Patient is cardiac stable for discharge. Telemetry reviewed. vital signs Vital Sign Date Time Temp Pulse Resp B/P (MAP) Pulse Ox O2 Delivery O2 Flow Rate FiO2 05/08/25 13:06 98.0 72 18 129/75 (93) 98 98.0 05/08/25 08:00 Room Air* 0 21 Total Intake and Output 05/07/25 05/07/25 05/08/25 15:00 23:00 07:00 Intake Total 247.8 ml 465 ml Output Total 700 ml Balance -452.2 ml 465 ml objective GENERAL: Alert and oriented x 3. No acute distress. EYES: PERRL, EOMI. Anicteric. HENT: Moist mucous membranes. LUNGS: Clear to auscultation bilaterally. CARDIOVASCULAR: Regular rate and rhythm. ABDOMEN: Soft, nontender and nondistended. EXTREMITIES: No edema. NEUROLOGIC: No focal neurological deficits. SKIN: Warm, dry. laboratory and microbiology Laboratory Tests 05/08/25 06:12 05/07/25 03:35 Test 05/08/25 06:12 Range/Units Serum Glucose 97 74-106 mg/dL Problem List Acute chest pain. Acute pericarditis. NSTEMI. Assessment/Plan Continued all current supportive medical care. Continue colchicine for suspected pericarditis. Maintain telemetry monitoring. Additional plan as per the hospital course. Plan discussed with: Patient LEXA CAMACHO MD May 08, 2025 22:43
--- NOTE | 2025-05-09 01:38 | DVHOP ---
DATE OF SURGERY: 05/07/2025 TECHNIQUES PERFORMED: * Ultrasound of the right artery. * Management of conscious sedation. * Ultrasound-guided insertion of 6-[place] arterial line in the right radial artery. * Left heart catheter. * Left angiogram. * [place] selective left and right coronary artery angiography. * Ascending aortogram. COMPLICATIONS: None. ASSISTANTS: Assisted by our staff over here is Kacie Solis. INDICATIONS: troponin more than 700, came because of the chest pain from [facility] via ambulance and there was slight ST elevation noted in the II, III and aVF with underlying 5/10 chest pain going on all night and all day. DESCRIPTION OF PROCEDURE: Risks and benefits discussed. Counseling done. The patient had the informed consent given. The patient was originally brought to the [facility] on 05/07/2025 on Thursday at approximately 04:30 p.m. The ultrasound of the right radial artery was done and a 6-[place] arterial line was placed. The patient received a cocktail of nitroglycerin and verapamil, subsequently also heparin 2000 units and angiography with the help of pigtail catheter, 6-[place] and left ventriculogram was done angiography, a total of 20 mL of dye. Post LV-gram, left ventriculogram performed with the help of pull-through technique. Aortic pressure was also performed. Ascending aortography also has been done and procedure completed. TR Band applied. IMPRESSION: * Normal left main. * Normal left anterior artery. * Normal circumflex and obtuse marginal artery and a large dominant artery. * Right coronary artery is a moderate-sized non-dominant artery. * Ejection fraction is in the range of 65% normal. * Ascending aortogram is also normal. CONCLUSIONS: * No evidence of any occlusive coronary artery disease. * Ejection fraction of 65%, normal. * Ascending aortogram is also normal. PLAN OF ACTION: As follows: Advised the patient that he is cardiac clear. Discussion done with our nurse practitioner, Eleazar Hollins. Marry Garcia MD MP/HERVE/CARL TID: [id number] RECEIPT: [id number] MTDD
== END 2025-05-08 12:55 | disposition home or self-care (01) | DRG 282 ==
LOC: ER 00:41 → OVERFLOW 03:12 → TELE-CENTR 18:38
PROVIDERS: ADMIT Nurse Practitioner Acute Care; ATTEND Nurse Practitioner Acute Care
PROC: B310YZZ Fluoroscopy of Thoracic Aorta using Other Contrast (ICD-10-PCS; principal; 2025-05-07)
PROC: 4A023N7 Measurement of Cardiac Sampling and Pressure, Left Heart, Percutaneous Approach (ICD-10-PCS; 2025-05-07)
PROC: B211YZZ Fluoroscopy of Multiple Coronary Arteries using Other Contrast (ICD-10-PCS; 2025-05-07)
PROC: B215YZZ Fluoroscopy of Left Heart using Other Contrast (ICD-10-PCS; 2025-05-07)
PROC: 03HY32Z Insertion of Monitoring Device into Upper Artery, Percutaneous Approach (ICD-10-PCS; 2025-05-07)
DX: I30.9 Acute pericarditis, unspecified (principal); I21.A1 Myocardial infarction type 2; Z20.822 Contact with and (suspected) exposure to COVID-19; Z82.49 Family history of ischemic heart disease and other diseases of the circulatory system; Z79.899 Other long term (current) drug therapy
CPT/HCPCS: 36415; 71045; 80048; 80053; 80061; 80307; 81001; 82306; 82607; 83036; 83605; 83735; 83880; 84100; 84443; 84484; 85025; 85379; 85610; 85652; 85730; 86141; 87040; 87081; 87426; 87804; 93005; 93306; 93458; 93567; 96361; 96365; 99152; 99291; G0378; J2250; J2470; Q9967